=== PATIENT | female | born 1970 | race Caucasian/White ===

== ENCOUNTER 2025-03-26 14:09 | Emergency (ER) | payer OTHER ==
[2025-03-26] MEDS: LORazepam 1 MG/0.5 ML VIAL IV STA (14:49)
[2025-03-26] MEDS: MORPHINE SULFATE 4 MG/ML SYRINGE IVP STA (14:49)
[2025-03-26] MEDS: DIPH,PERTUS(ACELL)TETVAC-LF 0.5 ML VIAL IM ONE (14:50)
--- NOTE | 2025-03-26 14:52 | XR ---
EXAMINATION TYPE: XR finger LT DATE OF EXAM: 03/26/2025 2:42 PM COMPARISON: None CLINICAL INDICATION: Female, 54 years old with history of left thumb injury; PHH, pain TECHNIQUE: XR finger LT 3 views were obtained. FINDINGS/IMPRESSION: Amputation of the first digit distal phalanx with soft tissue and bony components. [facility], , 03/26/2025 2:50 PM
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
[2025-03-26 18:15] VITALS: BP 104/65; PULSE 60; RESP 16; TEMP 98.7
== END 2025-03-26 18:15 | disposition other institution (70) ==
LOC: EC 14:09
DX: S68.012A Complete traumatic metacarpophalangeal amputation of left thumb, initial encounter (principal); Z87.891 Personal history of nicotine dependence; Z23 Encounter for immunization; W49.02XA String or thread causing external constriction, initial encounter; Y92.814 Boat as the place of occurrence of the external cause
CPT/HCPCS: 73140; 90715; 99284; 96365; 96375; 90471; J2060; J2270; J0690